=== PATIENT | male | born 1995 | race Caucasian/White ===

== ENCOUNTER 2018-01-03 14:10 | Inpatient (IN) | payer OTHER ==
[~2018-01-03] VITALS: Ht 180.3 cm; Wt 96.0 kg
[2018-01-03] MEDS ORDERED: METO25TA5 PO (14:59)
[2018-01-03] MEDS ORDERED: MORPHINE SULF INJ 2 MG/ML SYRINGE 1ML IV PRN (15:30)
[2018-01-03] MEDS ORDERED: NITROGLYCERIN 0.4 MG SL TAB SL PRN (15:30)
[2018-01-03 16:00] VITALS: BP 121/74
[2018-01-03] MEDS ORDERED: ENOXAPARIN SOD 40 MG/0.4 ML SYRINGE SC ONE (16:15)
[2018-01-03] MEDS: SODIUM CHLOR 0.9% PF (SALINE LOCK) 10ML VIAL IV SCH (21:50)
[2018-01-03] MEDS: METOPROLOL TARTRATE 25 MG TAB PO SCH (21:51)
[2018-01-03 22:00] VITALS: BP 128/82
[2018-01-04 05:00] VITALS: BP 131/82
[2018-01-04] MEDS: SODIUM CHLOR 0.9% PF (SALINE LOCK) 10ML VIAL IV SCH ×3 (06:03→22:34)
[2018-01-04 06:42] LABS: Basophils # (auto) 0 uL; Basophils % (auto) 0.8 % (0.0-2.0); Eosinophils # (auto) 0.1 uL; Eosinophils % (auto) 2.7 % (0.0-7.0); Hematocrit 43.4 % (41.0-53.0); Hemoglobin 15.1 g/dL (13.5-17.5); Lymphocytes # (auto) 1.7 uL; Lymphocytes % (auto) 31.4 % (10.0-50.0); Mean Corpuscular Hemoglobin 30.4 pg (28.0-32.0); Mean Corpuscular Hgb Conc. 34.7 g/dL (32.0-36.0); Mean Corpuscular Volume 87.5 fL (80.0-100.0); Monocytes # (auto) 0.7 uL; Monocytes % (auto) 13.2 % (0.0-12.0); Neutrophils # (auto) 2.8 uL; Neutrophils % (auto) 51.9 % (37.0-80.0); Nucleated Red Blood Cells % 0.2 %; Platelet Count (auto) 185 10^3/uL (140-450); Red Blood Cells 4.96 10^6/uL (4.5-5.90); Red Cell Distribution Width 12.7 % (11.8-14.3); White Blood Cell 5.4 10^3/uL (4.4-10.8)
[2018-01-04 06:46] LABS: Calcium 8.8 mg/dL (8.5-10.1); Potassium 3.8 mmol/L (3.5-5.1)
[2018-01-04 09:29] VITALS: BP 139/68
[2018-01-04] MEDS: ENOXAPARIN SOD 40 MG/0.4 ML SYRINGE SC SCH (10:00)
[2018-01-04] MEDS: METOPROLOL TARTRATE 25 MG TAB PO SCH ×2 (10:43→22:34)
[2018-01-04 11:46] VITALS: BP 133/80
[2018-01-04 15:59] LABS: INR 0.94 (0.9-1.15); Partial Thromboplastin Time 26.5 sec (22.64-33.71); Prothrombin Time 10.2 sec (9.37-12.3)
[2018-01-04 17:01] VITALS: BP 131/70
[2018-01-04 22:00] VITALS: BP 134/79
[2018-01-05 05:00] VITALS: BP 119/65
[2018-01-05] MEDS: SODIUM CHLOR 0.9% PF (SALINE LOCK) 10ML VIAL IV SCH ×3 (05:36→22:00)
[2018-01-05] MEDS ORDERED: SODIUM CHLORIDE 0.9% 1,000 ML IV SCH (07:00)
[2018-01-05 07:32] VITALS: BP 116/69
[2018-01-05] MEDS: METOPROLOL TARTRATE 25 MG TAB PO SCH ×2 (10:00→23:37)
[2018-01-05] MEDS: ENOXAPARIN SOD 40 MG/0.4 ML SYRINGE SC SCH (10:09)
[2018-01-05 11:48] VITALS: BP 123/77
[2018-01-05] MEDS ORDERED: SODIUM CHLORIDE 0.9% 500 ML IV ONE (14:30)
[2018-01-05] MEDS ORDERED: LIDOCAINE 2%HCL (LOCAL ANESTH.) INJ 20ML MDV ONE ×2 (16:49→17:27)
[2018-01-05] MEDS ORDERED: IOHEXOL 350 MG/ML 100ML IJ ONE (16:49)
[2018-01-05] MEDS ORDERED: fentaNYL CITRATE 100 MCG/2 ML VL ONE ×3 (16:59→21:23)
[2018-01-05] MEDS ORDERED: MIDAZOLAM HCL 1MG/1ML-2 ML VIAL ONE ×2 (16:59→18:09)
[2018-01-05] MEDS ORDERED: ISOPROTERENOL HCL INJECTION 1 MG in D5W 5% 250 ML IV SCH (17:01)
[2018-01-05] MEDS ORDERED: HEPARIN SODIUM (PORCINE) 5000 UNITS/ML 1ML VIAL ONE ×3 (18:04→18:32)
[2018-01-05] MEDS ORDERED: hydrALAZINE HCL 20 MG/ML VL ONE (18:17)
[2018-01-05] MEDS ORDERED: ADENOSINE 6 MG/2 ML INJ IV ONE (19:12)
[2018-01-05] MEDS ORDERED: ASPirin 81 mg TAB PO ONE (19:45)
[2018-01-05] MEDS ORDERED: ONDANSETRON HCL 4 MG/2 ML VIAL ONE (20:36)
[2018-01-05 22:48] VITALS: BP 129/70
[2018-01-06 05:09] VITALS: BP 120/74
[2018-01-06] MEDS: SODIUM CHLOR 0.9% PF (SALINE LOCK) 10ML VIAL IV SCH ×2 (06:00→15:28)
[2018-01-06 08:30] VITALS: BP 111/67
[2018-01-06] MEDS ORDERED: ASPirin 81 mg TAB PO SCH (10:00)
[2018-01-06] MEDS: METOPROLOL TARTRATE 25 MG TAB PO SCH ×2 (10:00→15:53)
[2018-01-06 11:47] VITALS: BP 123/65
[2018-01-06] MEDS ORDERED: ASPI81CH43 PO (13:40)
[2018-01-06] MEDS ORDERED: METO25TA5 PO (13:40)
[2018-01-06 16:57] VITALS: BP 123/67
== END 2018-01-06 18:30 | disposition home or self-care (01) | DRG 273 ==
LOC: TELE-EAST 14:10
PROVIDERS: ADMIT Specialist; ATTEND Specialist
PROC: 02K83ZZ Map Conduction Mechanism, Percutaneous Approach (ICD-10-PCS; principal; 2018-01-05)
PROC: 02583ZZ Destruction of Conduction Mechanism, Percutaneous Approach (ICD-10-PCS; 2018-01-05)
PROC: 4A023FZ Measurement of Cardiac Rhythm, Percutaneous Approach (ICD-10-PCS; 2018-01-05)
PROC: 4A0234Z Measurement of Cardiac Electrical Activity, Percutaneous Approach (ICD-10-PCS; 2018-01-05)
PROC: 5A2204Z Restoration of Cardiac Rhythm, Single (ICD-10-PCS; 2018-01-05)
DX: I21.4 Non-ST elevation (NSTEMI) myocardial infarction (principal); J96.01 Acute respiratory failure with hypoxia; I47.1 Supraventricular tachycardia; J81.1 Chronic pulmonary edema; I11.9 Hypertensive heart disease without heart failure; D72.829 Elevated white blood cell count, unspecified; F90.9 Attention-deficit hyperactivity disorder, unspecified type; Z79.82 Long term (current) use of aspirin; Z91.19 Patient's noncompliance with other medical treatment and regimen
CPT/HCPCS: 36415; 71045; 80048; 82150; 83690; 83735; 84484; 85025; 85610; 85730; 86850; 86900; 86901; 87081; 93005; 93306; 93613; 93653; 99152; 99153; J0153; J2250; J2405; J7060